=== PATIENT | male | born 1990 | race Two or more races ===

== ENCOUNTER → 2025-01-04 | Outpatient (CLI) | payer OTHER, SELFPAY ==
--- NOTE | 2025-01-04 14:32 | XR_ITS ---
Examination: Lumbar spine, 5 views Technique: Lumbar spine AP, lateral, coned lateral lower lumbar spine, bilateral obliques 5 views Exam date and time: January 04, 2025 1435 hours INDICATIONS: Back pain beginning 4 days ago. FINDINGS: Satisfactory alignment lumbar vertebral bodies No lumbar fracture No significant lumbar disc narrowing No spondylolisthesis IMPRESSION: No lumbar fracture No significant lumbar disc narrowing
== END | disposition home or self-care (01) ==
LOC: CDIM 14:10
PROVIDERS: Referring Provider Family Medicine; Visit Provider Family Medicine
DX: S39.002A Unspecified injury of muscle, fascia and tendon of lower back, initial encounter (principal); X58.XXXA Exposure to other specified factors, initial encounter
CPT/HCPCS: 72110